=== PATIENT | male | born 1935 | race Caucasian/White ===

== ENCOUNTER 2017-09-06 07:57 | Day surgery (SDC) | payer MEDICARE, OTHER ==
--- NOTE | 2017-08-29 21:01 | HP ---
PREOPERATIVE HISTORY AND PHYSICAL: DATE OF ADMISSION: 09/06/17 [facility] CHIEF COMPLAINT: Numbness and tingling in the left hand and locking of the middle and ring fingers. HISTORY OF PRESENT ILLNESS: Norma is an 82-year-old man, who had right carpal tunnel syndrome and index finger trigger on the right. Surgical treatment for these was very successful and he now has similar symptoms on the left with numbness and tingling and swelling that decreases his range of motion in the middle and ring fingers. He presents for a left trigger finger release for the middle and ring fingers and left carpal tunnel release. PAST MEDICAL HISTORY: Significant for an elevated cholesterol. PAST SURGICAL HISTORY: Right carpal tunnel release and index finger trigger release. MEDICATIONS: 1. Aspirin 81 mg daily. 2. Atorvastatin calcium 20 mg p.o. daily. ALLERGIES: None. FAMILY HISTORY: Noncontributory. SOCIAL HISTORY: He is retired. He is a former smoker, quit about 35 years ago. He denies recreational drug use. He occasionally drinks alcohol, approximately 1 glass of wine daily. REVIEW OF SYSTEMS: Negative for cephalic, cardiovascular, respiratory, gastrointestinal, genitourinary, other musculoskeletal, skin, neurologic, endocrine, and hematologic symptoms. PHYSICAL EXAMINATION GENERAL: He is a healthy-appearing very pleasant man, in minimal distress at rest. VITAL SIGNS: 5 feet 9 inches, weight 185 pounds. Pulse 76, blood pressure 140/ 74, respirations 12, temperature 98.2. HEENT: Unremarkable. His eye movements are concentric. NECK: He has good range of motion of his neck without pain. No masses are palpated. LUNGS: Clear to auscultation. Good inspiratory effort. No wheezing. CARDIAC: Regular rate and rhythm without murmur. EXTREMITIES: He has decreased range of motion in the middle and ring finger and he cannot make a full fist. He has good extension of his fingers. Positive Tinel's sign of the median nerve and decreased sensation in the median nerve distribution. PERIPHERAL VASCULAR: He has palpable pulses and no peripheral edema. NEUROLOGICAL: He is alert and oriented without focal deficit. IMPRESSION: Left carpal tunnel syndrome and middle and ring finger trigger fingers. PLAN: Plan is for a left carpal tunnel release, middle and ring finger trigger release. The surgical procedure, risks, and benefits were explained to the patient today and he agrees to proceed. I will see him back in followup approximately 10 days postop. [id number]/[facility] #: [id number] [facility] HOSPITALDestinee
[~2017-09-06 07:57] MED LIST: Buffered Lidocaine 0.9% SYRIN* 5 ML/SYR SYRINGE INTRADERM ONE; Famotidine IV* 10 MG/ML 2 ML (20 mg) IV ONE; Famotidine IV* 10 MG/ML 2 ML (20 mg) ONE
[2017-09-06] MEDS ORDERED: Lidocaine 1% INJ* 10 MG/ML 30 ML SDV ONE (08:16)
[2017-09-06] MEDS ORDERED: methylPREDNISolone ACETATE 80* 80 MG/ML 1 ML VIAL ONE (08:16)
[2017-09-06] MEDS ORDERED: Midazolam* 1 MG/ML 5 ML VIAL (5 MG) ONE (08:47)
[2017-09-06] MEDS ORDERED: fentaNYL* 50 MCG/ML 2 ML VIAL (100 MCG VIAL) ONE (08:47)
[2017-09-06] MEDS ORDERED: Propofol* 10 MG/ML 20 ML BTL IV PUSH ONE (10:11)
[2017-09-06] MEDS ORDERED: Ketorolac INJ* 30 MG/ML 1 ML VIAL ONE (10:11)
[2017-09-06] MEDS ORDERED: Lidocaine 2% MPF* 2 ML VIAL ONE (10:11)
[2017-09-06] MEDS ORDERED: Acetaminophen TAB* 325 MG PO PRN (10:28)
[2017-09-06] MEDS ORDERED: Naloxone* 0.4 MG/ML 1 ML VIAL IV PRN (10:28)
[2017-09-06] MEDS ORDERED: Ondansetron INJ* 2 MG/ML VIAL IV PRN (10:28)
[2017-09-06 10:35] VITALS: BP 155/73
--- NOTE | 2017-09-07 05:29 | OP ---
CORRECTION ADDENDUM NOW INCLUDED TO FILL IN BLANK DATE OF OPERATION: 09/06/17 - [facility] DATE OF : 33 SURGEON: Thea Woodruff MD INVESTMENT BANKER: TERESA Faria ANESTHESIA: Local MAC. PRE-OP DIAGNOSES: Ring and long finger trigger finger, carpal tunnel syndrome, and left thumb carpometacarpal arthritis. POST-OP DIAGNOSES: Ring and long finger trigger finger, carpal tunnel syndrome , and left thumb carpometacarpal arthritis. OPERATIVE PROCEDURE: Left thumb carpometacarpal injection, left carpal tunnel release, trigger finger release left ring and middle fingers. ESTIMATED BLOOD LOSS: Zero. TOURNIQUET TIME: About 15 minutes. INDICATIONS FOR PROCEDURE: Norma is an 82-year-old man who has marked swelling in his left hand with numbness and tingling in the median nerve distribution and painful locking of his middle and ring fingers. Also, he has pain at the base of his thumb consistent with thumb CMC arthritis. He presents for left thumb injection, left middle and ring finger trigger release and left carpal tunnel release. DESCRIPTION OF PROCEDURE: The patient was brought to operating room, was given a sedation anesthetic and a local infiltration of 10 cc of 1% plain lidocaine in the palm of his left hand overlying the middle and ring finger A1 pulleys, 10 cc of 1% plain lidocaine in the left hand overlying the carpal tunnel and 80 mg with Depo-Medrol and 2 cc of 1% plain lidocaine was injected at the left thumb CMC joint. The skin of his left hand and forearm was prepped and draped in the usual sterile fashion. The hand and forearm were exsanguinated and the tourniquet elevated to 250 mmHg. A transverse incision was made centered over the A1 aston of the middle and ring fingers, dissected bluntly through the subcutaneous tissue. The A1 pulleys of the middle and ring fingers were then incised longitudinally completely releasing the tendons, which were in good condition, but had a significant amount of synovial fluid surrounding them. The digital neurovascular bundles were protected by the surgical appliance fitter, Karlee Walden, with Cristy rake. This wound was irrigated and the skin edges were reapproximated with 4-0 nylon suture. Next, a longitudinal incision was made in the palm in line with the ring finger. We dissected through the subcutaneous tissue down to the transverse carpal ligament. The ligament was divided sharply with the knife and then more proximally with the scissors. The nerve was dissected free from the surrounding tissue and there is an area of moderate compression at the mid portion of the ligament. The wound was irrigated and the skin edges were reapproximated with 4-0 nylon suture. The wound was dressed with Xeroform, 4x4, Webril, and an Santiago wrap. The patient tolerated the procedure well and was brought to the recovery room in good condition. [id number]/[facility] #: [id number]/[facility] #: [id number] NELIDA
== END 2017-09-06 10:55 | disposition home or self-care (01) ==
LOC: OREAST 07:57
PROVIDERS: ATTEND Orthopaedic Surgery
DX: G56.02 Carpal tunnel syndrome, left upper limb (principal); M65.332 Trigger finger, left middle finger; M65.342 Trigger finger, left ring finger; M18.12 Unilateral primary osteoarthritis of first carpometacarpal joint, left hand; E78.00 Pure hypercholesterolemia, unspecified; Z79.82 Long term (current) use of aspirin; Z87.891 Personal history of nicotine dependence
CPT/HCPCS: J1040; J1885; J2250; J2704; J3010